=== PATIENT | male | born 1955 | race Caucasian/White ===

== ENCOUNTER → 2017-09-28 | Outpatient (CLI) | payer BC ==
[~2017-09-28] MED LIST: BUPROPION 300 MG; CEPH500 PO; HYDACE5 PO
== END ==
LOC: LAB EV 10:24 → LAB SHORT 10:24
DX: N41.9 Inflammatory disease of prostate, unspecified (principal)
CPT/HCPCS: 87077; 87086; 87186

== ENCOUNTER 2019-12-27 07:53 | Day surgery (SDC) | payer MEDICARE, BC ==
[~2019-12-27] VITALS: Ht 180.3 cm; Wt 116.0 kg
[~2019-12-27 07:53] MED LIST changes: +BUPR150ER PO; +CALCIUM + VITA1 EAC2 PO; +Coq-1030 MG PO; +FISH OIL 1,2001 EAC1 PO; +FLAXSEED OIL1000 M1 PO; +METF500C PO; +NEBI10 PO; +NITRO-DUR1 EAC1 TOP; +PRAV20 PO; +TAMS.4ER PO
--- NOTE | 2019-12-27 14:23 | NUR ---
PT DRESSED, IV DC'D INTACT, TR BAND REMOVED, DRESSING PLACED, R WRIST SPLINT/ARM SLING PLACED, PT CHOOSES TO AMB OUT, WITH FRIEND DRIVING PT HOME. PT AMB WELL
== END 2019-12-27 14:20 | disposition home or self-care (01) ==
LOC: MHTC 07:53
DX: I25.118 Atherosclerotic heart disease of native coronary artery with other forms of angina pectoris (principal); E78.00 Pure hypercholesterolemia, unspecified; E78.5 Hyperlipidemia, unspecified; I12.9 Hypertensive chronic kidney disease with stage 1 through stage 4 chronic kidney disease, or unspecified chronic kidney disease; E11.22 Type 2 diabetes mellitus with diabetic chronic kidney disease; G47.33 Obstructive sleep apnea (adult) (pediatric); Z87.891 Personal history of nicotine dependence; N18.3 Chronic kidney disease, stage 3 (moderate); Z79.82 Long term (current) use of aspirin; Z79.899 Other long term (current) drug therapy; Z79.84 Long term (current) use of oral hypoglycemic drugs
CPT/HCPCS: 82947; 85347; 93458; 93571; 99152; 99153; C1769; C1887; C1894; J1644; J2250; J3010; J7030; J7040; Q9967

== ENCOUNTER → 2022-09-29 | Outpatient (CLI) | payer MEDICARE, BC | END | disposition home or self-care (01) | LOC: LAB 09:52 → LAB SHORT 09:52 | DX: N40.1 Benign prostatic hyperplasia with lower urinary tract symptoms (principal) | CPT/HCPCS: 87077; 87086; 87186 ==

== ENCOUNTER 2023-03-10 11:54 | Day surgery (SDC) | payer MEDICARE, BC ==
[~2023-03-10] VITALS: Ht 180.3 cm; Wt 111.3 kg
[2023-03-10 13:53] VITALS: BP 98/69
== END 2023-03-10 14:08 | disposition home or self-care (01) ==
LOC: ORSCSDS 11:54
PROVIDERS: Internal Medicine Gastroenterology
PROC: 0DBP8ZX Excision of Rectum, Via Natural or Artificial Opening Endoscopic, Diagnostic (ICD-10-PCS; principal; 2023-03-10 13:15)
PROC: 0DBK8ZX Excision of Ascending Colon, Via Natural or Artificial Opening Endoscopic, Diagnostic (ICD-10-PCS; principal; 2023-03-10 13:15)
PROC: 0DBM8ZX Excision of Descending Colon, Via Natural or Artificial Opening Endoscopic, Diagnostic (ICD-10-PCS; principal; 2023-03-10 13:15)
DX: R19.4 Change in bowel habit (principal); K92.1 Melena; Z86.010 Personal history of colon polyps; D12.4 Benign neoplasm of descending colon; D12.2 Benign neoplasm of ascending colon; K52.9 Noninfective gastroenteritis and colitis, unspecified; K57.30 Diverticulosis of large intestine without perforation or abscess without bleeding; K64.8 Other hemorrhoids; I10 Essential (primary) hypertension; G47.33 Obstructive sleep apnea (adult) (pediatric); E66.9 Obesity, unspecified; Z68.34 Body mass index [BMI] 34.0-34.9, adult
CPT/HCPCS: 82947; 88305; J2704; J7120